=== PATIENT | female | born 1985 | race African-American/Black ===

== ENCOUNTER 2017-03-05 21:35 | Emergency (ER) | payer OTHER ==
[2017-03-05 21:39] LABS: URINE SOURCE CLEAN CATCH
[2017-03-05 21:59] LABS: URINE APPEARANCE CLEAR; URINE BILIRUBIN NEG (NEG); URINE BLOOD NEG (NEG); URINE COLOR YELLOW; URINE GLUCOSE NEG (NEG); URINE KETONE 2+ (NEG); URINE LEUKOCYTE ESTERASE NEG (NEG); URINE NITRATE NEG (NEG); URINE PH 6.5 (5-8); URINE PROTEIN NEG (NEG); URINE SPECIFIC GRAVITY 1.029 (1.003-1.035)
[2017-03-05 22:03] LABS: CULTURE INDICATED? NO
[2017-03-07 23:02] LABS: CHLAMYDIA TRACH Detected (Not Detected); N GONOR Not Detected (Not Detected)
== END 2017-03-05 22:10 | disposition home or self-care (01) ==
LOC: CED 21:35
PROVIDERS: Nurse Practitioner
DX: N76.0 Acute vaginitis (principal); J45.909 Unspecified asthma, uncomplicated; F17.200 Nicotine dependence, unspecified, uncomplicated
CPT/HCPCS: 81003; 84703; 87491; 87591; 87808; 87905; 99284